=== PATIENT | male | born 1965 | race African-American/Black ===

== ENCOUNTER 2020-05-08 06:55 | Emergency (ER) | payer SELFPAY ==
[~2020-05-08] VITALS: Ht 170.2 cm; Wt 104.3 kg
[2020-05-08 08:16] VITALS: BP 174/92
[2020-05-08] MEDS ORDERED: HYDROcodone-ACET 7.5/325MG TAB PO ONE (08:30)
[2020-05-08] MEDS ORDERED: BACITRACIN TOP OINT 1 UD PKG TOP ONE (08:30)
[2020-05-08] MEDS ORDERED: LIDOCAINE 1% HCL (LOCAL ANESTH.) INJ 20ML MDV ONE ×2 (09:11→10:34)
[2020-05-08] MEDS ORDERED: TETANUS-DIPTH-ACEL PERTUSSIS 0.5ML SYR Tdap IM ONE (09:30)
[2020-05-08] MEDS ORDERED: cefTRIAXone SOD 1,000 MG VL IM ONE (09:30)
== END 2020-05-08 10:54 | disposition home or self-care (01) ==
LOC: ER 06:55 → EDBD 06:55 → ER 10:54
DX: S22.31XA Fracture of one rib, right side, initial encounter for closed fracture (principal); S61.011A Laceration without foreign body of right thumb without damage to nail, initial encounter; E11.9 Type 2 diabetes mellitus without complications; E78.5 Hyperlipidemia, unspecified; I10 Essential (primary) hypertension; V49.9XXA Car occupant (driver) (passenger) injured in unspecified traffic accident, initial encounter; Y93.89 Activity, other specified; Y92.410 Unspecified street and highway as the place of occurrence of the external cause; Y99.8 Other external cause status
CPT/HCPCS: 12002; 70450; 71101; 73130; 90471; 90715; 96372; 99284; J0696; J2001

== ENCOUNTER 2023-03-14 07:25 | Emergency (ER) | payer MEDICAID ==
[~2023-03-14] VITALS: Ht 170.2 cm; Wt 100.0 kg
[2023-03-14 08:03] VITALS: BP 154/93
[2023-03-14] MEDS ORDERED: CEPH-510 PO (08:10)
[2023-03-14] MEDS ORDERED: IBUP800T27 PO (08:10)
== END 2023-03-14 08:29 | disposition home or self-care (01) ==
LOC: ER 07:25
DX: B35.1 Tinea unguium (principal); S91.102A Unspecified open wound of left great toe without damage to nail, initial encounter; X58.XXXA Exposure to other specified factors, initial encounter; Y93.89 Activity, other specified; Y92.89 Other specified places as the place of occurrence of the external cause; Y99.8 Other external cause status
CPT/HCPCS: 11730